=== PATIENT | female | born 1970 | race Caucasian/White ===

== ENCOUNTER 2016-09-22 16:27 | Observation (INO) | payer OTHER ==
[~2016-09-22] VITALS: Ht 154.9 cm; Wt 92.7 kg
[2016-09-22] MEDS ORDERED: LABETALOL HCL 100 MG/20 ML VIAL IV STA ×3 (16:53→21:13)
--- NOTE | 2016-09-22 17:15 | REP ---
Clinical: Headache. Comparison: None. Findings: The ventricles, sulci, and cisterns are normal in position and appearance. Quesada-white differentiation is maintained. No acute intracranial hemorrhage, mass/mass effect, pathology or trauma/injury. No evidence for acute infarction. No extra-axial fluid collection. Calvarium is intact. Paranasal sinuses and mastoid air cells are clear. Impression: Normal noncontrast head CT. No evidence for acute intracranial pathology or trauma/injury. Signed by Phil Crowe MD 09/22/2016 05:07 P
[2016-09-22 17:46] LABS: BASO # 0.1 K/mm3 (0.0-0.2); BASO % 0.8 % (0.0-1.0); EOS # 0.2 K/mm3 (0.0-0.50); EOS % 1.4 % (0.0-3.0); LARGE UNSTAINED CELL # 0.1 K/mm3 (0.0-0.4); LARGE UNSTAINED CELL % 0.9 % (0.0-4.0); LYMPH # 3.4 K/mm3 (1.5-4.5); LYMPH % 28.4 % (24.0-44.0); MEAN CORPUSCULAR HEMOGLOBIN 32.9 pg (27.0-33.0); MEAN CORPUSCULAR VOLUME 94.2 fl (80.0-96.0); MONO # 0.6 K/mm3 (0.0-0.8); MONO % 4.9 % (0.0-5.0); NEUTROPHILS # 7.4 K/mm3 (1.8-7.7); NEUTROPHILS % 63.6 % (36.0-66.0); PLATELET COUNT, AUTOMATED 290 k/mm3 (150-450); WHITE BLOOD COUNT 11.7 K/mm3 (4.0-10.0)
--- NOTE | 2016-09-22 17:58 | REP ---
Clinical: Hypertension . Comparison: 07/14/2014 . Technique: PA and lateral. Findings: The mediastinum and cardiac silhouette are normal. The lung jane are clear and without acute consolidation, effusion, or pneumothorax. The skeletal structures are intact and stable scoliosis is again noted. Impression: 1. No acute cardiopulmonary process. Signed by Phil Crowe MD 09/22/2016 05:49 P
[2016-09-22] MEDS ORDERED: ACETAMINOPHEN TAB 650MG DOSE (2X325MG) PO ONE (18:00)
[2016-09-22 18:17] LABS: ANION GAP 8 MEQ/L (8-16); BLOOD UREA NITROGEN 10 MG/DL (7-18); CALCIUM LEVEL 9.1 MG/DL (8.5-10.1); CARBON DIOXIDE LEVEL 28 MEQ/L (21-32); CHLORIDE LEVEL 104 MEQ/L (98-107); CREATININE FOR GFR 0.56 MG/DL (0.55-1.02); GLOMERULAR FILTRATION RATE > 60.0 (>58); GLUCOSE, FASTING 112 MG/DL (70-105); POTASSIUM SERUM 3.8 MEQ/L (3.5-5.1); SODIUM LEVEL 140 MEQ/L (136-145)
[2016-09-22] MEDS ORDERED: hydrALAZINE INJ 20 MG/ML VIAL IV ONE (19:30)
[2016-09-22] MEDS ORDERED: FUROSEMIDE 40 MG/4 ML VIAL (J1940) IV ONE (19:30)
[2016-09-22] MEDS ORDERED: cloNIDine 0.1 MG TAB PO ONE (19:30)
[2016-09-22] MEDS ORDERED: NAPR500T2 PO (19:33)
[2016-09-22] MEDS ORDERED: GLUCAGON FOR INJ 1 MG VIAL (J1610) SC PRN (20:00)
[2016-09-22] MEDS ORDERED: DEXTROSE 50% 50 ML SYRINGE IV PRN (20:00)
[2016-09-22] MEDS ORDERED: GLUCOSE 4 GM CHEW TABLET PO PRN (20:00)
[2016-09-22] MEDS ORDERED: LABETALOL 100 MG TAB PO SCH (21:00)
[2016-09-22] MEDS ORDERED: NICOTINE POLACRILEX 2 MG GUM PO PRN (21:15)
--- NOTE | 2016-09-22 21:41 | ECGEPIP ---
Stationary ECG Study [facility] - ED Test Date: 2016-09-22 Pat Name: SNEHAL TORRES Department: Room: - Gender: F Hand Clerical Verifier: cris : 1970 Requested By: WILL Mcintyre Order Number: [id number] Reading MD: David Morris Measurements Intervals [place] Rate: 105 P: 49 PA: 164 QRS: 41 QRSD: 90 T: 39 QT: 345 QTc: 456 Interpretive Statements SINUS TACHYCARDIA Electronically Signed On 09-22-2016 21:41:34 EDT by aDvid Morris
--- NOTE | 2016-09-22 22:03 | HPE ---
DATE OF ADMISSION: 09/22/2016 PRIMARY CARE PROVIDER: Jesse Anaya MD INPATIENT HOSPITALIST ATTENDING: All Sosa MD CHIEF COMPLAINT: High blood pressure. HISTORY OF PRESENT ILLNESS: This is a 45-year-old female with history of hypertension, diabetes; has been trying to lose weight and be off medications presents to the emergency room after being found on routine annual examination with [facility] service to have a blood pressure of 220/120. The patient had felt very stressed for the past week, jittery with headache, very anxious. Denied any chest pain, pressure or tightness, lightheadedness, changes in vision, changes in gait. She was previously treated with metoprolol 25 to 50 mg three to four years ago and has been off medication since. Her blood pressure normalized. She was diagnosed with diabetes with A1c of 6.5, but currently trying diet and exercise and weight loss. The patient was sent to the emergency room due to hypertensive urgency. The patient had a similar episode about three months ago when she felt like she was going to pass out and fall while she was at work. At that time her blood pressure was also running quite high in the 180s to 190s. With relaxation and sitting down, the patient's blood pressure decreased to the 140s without intervention and without seeking medical attention. The patient keeps doing no added salt diet, exercises daily and has been trying to lose weight. She denies any history of palpitations or lightheadedness in the past. Does not use any recreational drugs. Hospitalist service was called for admission for hypertensive urgency. PAST MEDICAL HISTORY: Hypertension. Off medications for the past four years. Type 2 diabetes. A1c 6.08 May 2016. Currently attempting diet control. PAST SURGICAL HISTORY: L5-S1 laminectomy and discectomy 2007. SOCIAL HISTORY: The patient is a [employer] RN. Smokes a half a pack of cigarettes a day since age of 15. Still actively smoking. Social alcohol use. FAMILY HISTORY: Mother alive age 70, type 2 diabetes, chronic kidney disease, hypertension, coronary artery disease (CAD) and hypercholesterolemia. Father with lung cancer. HOME MEDICATIONS: None. ALLERGIES: No known drug allergies. EKG: Sinus rhythm. Ventricular rate of 105. No acute ST-T wave changes. CT of the head was negative. Chest x-ray. No apparent distress. No acute cardiopulmonary findings. LABORATORY DATA: White count 11, hemoglobin 16, hematocrit 47, platelet count 290. Sodium 140, potassium 3.8, chloride 104, bicarbonate 28, BUN 10, creatinine 0.7, glucose 112. Calcium 9.1, total CK 65, MB fraction 1, troponin less than 0.02. ASSESSMENT AND PLAN: This is a 45-year-old female with history of hypertension, diabetes, diet controlled, attempting weight loss. Has been off metoprolol for about three to four years. Currently on no medications for diabetes. History of chronic back pain with laminectomy L5 to S1 presents to the emergency room after being found on routine examination at [facility] to have a blood pressure of 220/120. The patient admits to feeling anxious, stressed and jittery. Complains of headache. CURRENT ISSUES: 1. Hypertensive urgency. patient received multiple doses of iv labetalol, iv hydralazine, iv lasix and oral clonidine in the ER with persistent sbp 190. She is admitted to telemetry. Rule out renal artery stenosis due to difficult to control blood pressure. Nothing by mouth (npo) after midnight. continue on labetalol and chlorthalidone 2. Diabetes. Check A1c level. The patient is current diet controlled. During nothing by mouth (npo) status, hypoglycemic protocol and sliding scale every 6 hourly. May resume no added salt consistent carbohydrate diet after renal ultrasound with Doppler. 3. Active smoking. Tobacco cessation counseling. Nicotine gum as needed. 4. Deep venous thrombosis (DVT) prophylaxis with Lovenox. The patient will be assigned to Dr. All Sosa 7:00 a.m. 09/23/2016. [place]
[2016-09-22 22:56] VITALS: BP 122/61
[2016-09-22] MEDS ORDERED: SLF 3 ML SYR IV PRN (23:15)
[2016-09-23] MEDS ORDERED: cloNIDine 0.2 MG TAB PO SCH
[2016-09-23] MEDS ORDERED: hydrALAZINE INJ 20 MG/ML VIAL IV SCH
[2016-09-23] MEDS: HumaLOG INSULIN (NovoLOG) PER UNIT SC SCH ×3 (00:21→11:52)
[2016-09-23 00:23] VITALS: BP 102/61
[2016-09-23 01:43] LABS: METHADONE URINE NEGATIVE (NEGATIVE)
[2016-09-23] MEDS ORDERED: ACETAMINOPHEN TAB 650MG DOSE (2X325MG) PO PRN (02:45)
[2016-09-23 04:58] VITALS: BP 96/54
[2016-09-23 05:38] LABS: BASO # 0.1 K/mm3 (0.0-0.2); EOS # 0.2 K/mm3 (0.0-0.50); LARGE UNSTAINED CELL # 0.1 K/mm3 (0.0-0.4); LARGE UNSTAINED CELL % 1.3 % (0.0-4.0); LYMPH # 4.5 K/mm3 (1.5-4.5); LYMPH % 41.3 % (24.0-44.0); MEAN CORPUSCULAR HEMOGLOBIN 33.3 pg (27.0-33.0); MEAN CORPUSCULAR HGB CONC 34.7 g/dl (32.0-36.5); MEAN CORPUSCULAR VOLUME 95.9 fl (80.0-96.0); MONO # 0.7 K/mm3 (0.0-0.8); MONO % 6.2 % (0.0-5.0); NEUTROPHILS # 5.1 K/mm3 (1.8-7.7); NEUTROPHILS % 48.2 % (36.0-66.0); PLATELET COUNT, AUTOMATED 298 k/mm3 (150-450); RED CELL DISTRIBUTION WIDTH 13.1 % (11.5-14.5); WHITE BLOOD COUNT 10.5 K/mm3 (4.0-10.0)
[2016-09-23 06:00] LABS: ANION GAP 8 MEQ/L (8-16); BLOOD UREA NITROGEN 17 MG/DL (7-18); CARBON DIOXIDE LEVEL 29 MEQ/L (21-32); CHLORIDE LEVEL 106 MEQ/L (98-107); CHOLESTEROL LEVEL 219 MG/DL (<200); CREATININE FOR GFR 0.73 MG/DL (0.55-1.02); GLOMERULAR FILTRATION RATE > 60.0 (>58); GLUCOSE, FASTING 131 MG/DL (70-105); POTASSIUM SERUM 3.6 MEQ/L (3.5-5.1); SODIUM LEVEL 143 MEQ/L (136-145); TRIGLYCERIDES LEVEL 341 MG/DL (<150)
[2016-09-23] MEDS ORDERED: SLF 3 ML SYR IV SCH (06:00)
[2016-09-23 08:00] VITALS: BP 115/59
[2016-09-23 09:00] VITALS: BP 115/59
[2016-09-23] MEDS: LABETALOL 100 MG TAB PO SCH ×2 (09:00→09:11)
[2016-09-23] MEDS ORDERED: CHLORTHALIDONE 25 MG TAB PO SCH (09:00)
--- NOTE | 2016-09-23 09:40 | REP ---
URINARY TRACT SONOGRAPHY WITH RENAL ARTERY DOPPLER FLOW ASSESSMENT: HISTORY: Rule out renal artery stenosis. Hypertension. Hypertensive urgency. MORPHOLOGIC FINDINGS: Scanning at the level of the urinary bladder shows smooth bladder obregon, incomplete bladder filling and no extravesical lesion. Renal cortical echogenicity pattern is normal and renal contours are smooth on both sides. The right kidney measures 13.3 x 7.3 x 4.0 cm. Left renal dimensions are 11.2 x 5.9 x 6.2 cm. Incidental note is made of some evidence of fatty infiltration of the liver. There is no evidence of hydronephrosis, mass, cyst or calculus. RENAL ARTERY DOPPLER FLOW ASSESSMENT: Peak systolic flow velocity in the abdominal aorta at the level of the main renal arteries is normal at 109.4 cm/s. Peak systolic flow velocity measured in the left main renal artery is 90 8.8 cm/s and that in the right main renal artery is measured at 140.2 cm/s. These values are normal. Renal to aortic flow velocity ratios are therefore normal at 1.3 on the right and 0.9 on the left. Resistive indices and acceleration times are measured in the intralobar arteries of the upper, mid and lower pole of each kidney and these values are normal bilaterally. IMPRESSION: No direct or indirect evidence of renal artery stenosis. No morphologic abnormality. Signed by Vincent Angulo MD 09/23/2016 05:07 P
[2016-09-23] MEDS ORDERED: NORV5TAB PO (09:50)
--- NOTE | 2016-09-23 11:23 | DS.PDOC ---
Discharge Summary General Date of Admission September 22, 2016 at 19:22 Date of Discharge 09/23/16 Primary Care Physician: GEOVANI KWON M.D. Discharge Summary PROCEDURES PERFORMED DURING STAY: None. ADMITTING DIAGNOSES: 1. . Hypertensive urgency DISCHARGE DIAGNOSES: 1. . Hypertensive urgency. COMPLICATIONS/CHIEF COMPLAINT: Hypertensive Urgency. HISTORY OF PRESENT ILLNESS: . 45-year-old female with past medical history of diabetes and hypertension was currently not on any medication as she had been practicing lifestyle and dietary modifications in an effort to control the aforementioned comorbid is presents to the ER after she was noted to have a significantly elevated blood pressure of 220/120 during an [facility] service annual examination. The patient states that she has been under a lot of stress recently due to personal issues at home. She reports that sometimes the stressful situations cause her to feel anxious and unwell. Otherwise, the patient states that her blood pressure usually runs in the 130s to 140s systolic as she frequently checks at home. The patient denied any complaints of fevers, chills, chest pain, palpitations, shortness with, abdominal pain, or any nausea/vomiting/diarrhea. In the ER, the patient was given multiple hypotensive agents but her blood pressure remained persistently elevated. The hospitalist service was called for admission and further evaluation and management of the patient's hypertension. During hospitalization, a CT scan of the head was noted to be negative. Renal ultrasound was ordered to rule out renal artery stenosis, and this revealed no acute findings. This morning the patient's blood pressure was actually on the lower side with a systolic in the 90s. The patient states that her blood pressure is usually normal and was only elevated due to the aforementioned personal issues. I've discussed frequent blood pressure checks over the next few days at home for the patient. In addition, I have prescribed the patient Norvasc to be taken if her blood pressure becomes elevated at home. The patient has verbalized understanding of this and states that she will follow up with her primary care physician within one week. I've also advised the patient to return to the ER if her blood pressure is to become uncontrolled again. DISCHARGE MEDICATIONS: Please see below. ALLERGIES: Please see below. PHYSICAL EXAMINATION ON DISCHARGE: VITAL SIGNS: Please see below. GENERAL: Awake, alert, oriented 5, in no acute distress HEENT: Normocephalic, atraumatic NECK: No JVD CARDIOVASCULAR EXAMINATION: Regular rate, regular rhythm RESPIRATORY EXAMINATION: Clear to auscultation bilaterally ABDOMINAL EXAMINATION: Soft, nontender, nondistended EXTREMITIES: No erythema, or tenderness LABORATORY DATA: Please see below. IMAGING: URINARY TRACT SONOGRAPHY WITH RENAL ARTERY DOPPLER FLOW ASSESSMENT: HISTORY: Rule out renal artery stenosis. Hypertension. Hypertensive urgency. MORPHOLOGIC FINDINGS: Scanning at the level of the urinary bladder shows smooth bladder obregon, incomplete bladder filling and no extravesical lesion. Renal cortical echogenicity pattern is normal and renal contours are smooth on both sides. The right kidney measures 13.3 x 7.3 x 4.0 cm. Left renal dimensions are 11.2 x 5.9 x 6.2 cm. Incidental note is made of some evidence of fatty infiltration of the liver. There is no evidence of hydronephrosis, mass, cyst or calculus. RENAL ARTERY DOPPLER FLOW ASSESSMENT: Peak systolic flow velocity in the abdominal aorta at the level of the main renal arteries is normal at 109.4 cm/s. Peak systolic flow velocity measured in the left main renal artery is 90 8.8 cm/ s and that in the right main renal artery is measured at 140.2 cm/s. These values are normal. Renal to aortic flow velocity ratios are therefore normal at 1.3 on the right and 0.9 on the left. Resistive indices and acceleration times are measured in the intralobar arteries of the upper, mid and lower pole of each kidney and these values are normal bilaterally. IMPRESSION: No direct or indirect evidence of renal artery stenosis. No morphologic abnormality. PROGNOSIS: Medically stable ACTIVITY: As tolerated. DIET: . 2 g low sodium diet DISCHARGE PLAN: DISPOSITION: . Home DISCHARGE INSTRUCTIONS: 1. . Follow-up with primary care physician within one week ITEMS TO FOLLOWUP ON ON OUTPATIENT: 1. Return to ER if symptoms return or worsen. DISCHARGE CONDITION: Stable. TIME SPENT ON DISCHARGE: Greater than 30 minutes. Vital Signs/I&Os Vital Signs Date Time Temp Pulse Resp B/P (MAP) Pulse Ox O2 Delivery O2 Flow Rate FiO2 09/23/16 09:00 75 115/59 09/23/16 08:00 97.0 18 96 Room Air I&O- Last 24 Hours up to 6 AM 09/23/16 06:00 Intake Total 50 ml Output Total 400 ml Balance -350 ml Laboratory Data Labs 24H Laboratory Tests 2 09/22/16 17:36: White Blood Count 11.7H, Red Blood Count 5.06, Hemoglobin 16.7H, Hematocrit 47.6H, Mean Corpuscular Volume 94.2, Mean Corpuscular Hemoglobin 32.9, Mean Corpuscular Hemoglobin Concent 35.0, Red Cell Distribution Width 13.0, Platelet Count 290, Neutrophils (%) (Auto) 63.6, Lymphocytes (%) (Auto) 28.4, Monocytes ( %) (Auto) 4.9, Eosinophils (%) (Auto) 1.4, Basophils (%) (Auto) 0.8, Neutrophils # (Auto) 7.4, Lymphocytes # (Auto) 3.4, Monocytes # (Auto) 0.6, Eosinophils # (Auto) 0.2, Basophils # (Auto) 0.1, Large Unclassified Cells % 0.9 , Large Unclassified Cells # 0.1, Anion Gap 8, Glomerular Filtration Rate > 60.0 , Blood Urea Nitrogen 10, Creatinine 0.56, Sodium Level 140, Potassium Level 3.8 , Chloride Level 104, Carbon Dioxide Level 28, Calcium Level 9.1, Total Creatine Kinase 65, Creatine Kinase MB 1.0, Creatine Kinase MB Relative Index 1.53, Troponin I < 0.02 09/22/16 23:48: Total Creatine Kinase 55, Creatine Kinase MB 1.0, Creatine Kinase MB Relative Index 1.81, Troponin I < 0.02 09/23/16 00:40: Urine Creatinine 25.2, Urine Microalbumin < 5.0, Urine Microalbumin/Creatinine Ratio 19.8, Urine Amphetamines Screen NEGATIVE, Urine Benzodiazepines Screen NEGATIVE, Urine Opiates Screen NEGATIVE, Urine Methadone Screen NEGATIVE, Urine Barbiturates Screen NEGATIVE, Urine Phencyclidine Screen NEGATIVE, Urine Cocaine Metabolite Screen NEGATIVE, Urine Cannabinoids Screen NEGATIVE 09/23/16 05:06: White Blood Count 10.5H, Red Blood Count 4.66, Hemoglobin 15.5, Hematocrit 44.7 , Mean Corpuscular Volume 95.9, Mean Corpuscular Hemoglobin 33.3H, Mean Corpuscular Hemoglobin Concent 34.7, Red Cell Distribution Width 13.1, Platelet Count 298, Neutrophils (%) (Auto) 48.2, Lymphocytes (%) (Auto) 41.3, Monocytes ( %) (Auto) 6.2H, Eosinophils (%) (Auto) 2.0, Basophils (%) (Auto) 1.0, Neutrophils # (Auto) 5.1, Lymphocytes # (Auto) 4.5, Monocytes # (Auto) 0.7, Eosinophils # (Auto) 0.2, Basophils # (Auto) 0.1, Large Unclassified Cells % 1.3 , Large Unclassified Cells # 0.1, Anion Gap 8, Glomerular Filtration Rate > 60.0 , Calcium Level 9.0, Total Creatine Kinase 49, Creatine Kinase MB 1.0, Creatine Kinase MB Relative Index 2.04, Troponin I < 0.02, Estimated Mean Plasma Glucose 123H, Hemoglobin A1c 5.9, Magnesium Level 2.0, Triglycerides Level 341H, LDL Cholesterol 114.8H, Total Cholesterol 219H, Non-HDL Cholesterol (LDL + VLDL) 183 , Total HDL Cholesterol 36L, Cholesterol/HDL Ratio 6.083H, Thyroid Stimulating Hormone (TSH) 7.510H CBC/BMP Laboratory Tests 09/22/16 17:36 Red Blood Count 5.06, Mean Corpuscular Volume 94.2, Mean Corpuscular Hemoglobin 32.9, Mean Corpuscular Hemoglobin Concent 35.0, Red Cell Distribution Width 13.0 , Neutrophils (%) (Auto) 63.6, Lymphocytes (%) (Auto) 28.4, Monocytes (%) (Auto ) 4.9, Eosinophils (%) (Auto) 1.4, Basophils (%) (Auto) 0.8, Neutrophils # (Auto ) 7.4, Lymphocytes # (Auto) 3.4, Monocytes # (Auto) 0.6, Eosinophils # (Auto) 0.2, Basophils # (Auto) 0.1, Calcium Level 9.1, Total Creatine Kinase 65 09/23/16 05:06 Red Blood Count 4.66, Mean Corpuscular Volume 95.9, Mean Corpuscular Hemoglobin 33.3 H, Mean Corpuscular Hemoglobin Concent 34.7, Red Cell Distribution Width 13.1, Neutrophils (%) (Auto) 48.2, Lymphocytes (%) (Auto) 41.3, Monocytes (%) ( Auto) 6.2 H, Eosinophils (%) (Auto) 2.0, Basophils (%) (Auto) 1.0, Neutrophils # (Auto) 5.1, Lymphocytes # (Auto) 4.5, Monocytes # (Auto) 0.7, Eosinophils # ( Auto) 0.2, Basophils # (Auto) 0.1 Discharge Medications Scheduled Amlodipine Besylate (Norvasc) 5 Mg Tab, 5 MG PO DAILY Naproxen (Naproxen) 500 Mg Tab, 500 MG PO QHS, (Reported) Allergies Coded Allergies: Methocarbamol (Unverified Allergy, Intermediate, SCRATCHY THROAT/TINGLING TONGUE, 09/22/16) GAMAL CORTEZ MD September 23, 2016 11:23
== END 2016-09-23 12:54 | disposition home or self-care (01) ==
LOC: M ED 17:40 → M ED INP 19:22 → M PCU 22:49
PROVIDERS: ADMIT General Practice; ATTEND Hospitalist
DX: I16.0 Hypertensive urgency (principal); E11.9 Type 2 diabetes mellitus without complications; I10 Essential (primary) hypertension; F17.210 Nicotine dependence, cigarettes, uncomplicated
CPT/HCPCS: 36415; 70450; 71020; 76775; 80048; 80061; 80306; 82043; 82550; 82553; 83036; 83735; 84443; 85025; 93005; 93041; 93975; 94760; 96374; 96375; 96376; 99285; J1940

== ENCOUNTER 2017-04-14 13:56 | Emergency (ER) | payer OTHER ==
[~2017-04-14] VITALS: Ht 154.9 cm; Wt 90.9 kg
[~2017-04-14 13:56] MED LIST: NAPR500T3 PO; NORV5TAB PO
[2017-04-14] MEDS ORDERED: AMLO10TA2 PO (14:22)
[2017-04-14] MEDS ORDERED: METO1TAB7 PO (14:23)
[2017-04-14] MEDS ORDERED: LEVO50TA5 PO (14:24)
[2017-04-14] MEDS ORDERED: LISI-538 PO (14:26)
[2017-04-14] MEDS ORDERED: LISI10TA4 PO (14:26)
[2017-04-14] MEDS ORDERED: ASPIRIN 81 MG CHEW TABLET PO ONE (14:45)
[2017-04-14] MEDS ORDERED: NITROGLYCERIN 2% OINT 1 GM *U/D* PKT TOP ONE (14:45)
[2017-04-14 14:56] LABS: BASO # 0.1 10^3/uL (0.0-0.2); BASO % 1.1 % (0.0-1.0); EOS # 0.1 10^3/uL (0.0-0.50); EOS % 1.1 % (0.0-3.0); IMMATURE GRANULOCYTE % 0.4 % (0-0); LYMPH # 3.4 10^3/uL (1.5-4.5); LYMPH % 35.9 % (24.0-44.0); MEAN CORPUSCULAR HEMOGLOBIN 32.4 pg (27.0-33.0); MEAN CORPUSCULAR HGB CONC 34.6 g/dl (32.0-36.5); MEAN CORPUSCULAR VOLUME 93.6 fl (80.0-96.0); MONO # 0.6 10^3/uL (0.0-0.8); MONO % 6.3 % (0.0-5.0); NEUTROPHILS # 5.3 10^3/uL (1.8-7.7); NEUTROPHILS % 55.2 % (36.0-66.0); RED CELL DISTRIBUTION WIDTH 12.7 % (11.5-14.5); WHITE BLOOD COUNT 9.6 10^3/uL (4.0-10.0)
[2017-04-14 15:00] LABS: CONTROL LINE HCG INT CTR LINE PRESENT
[2017-04-14 15:08] LABS: ALBUMIN 4.3 GM/DL (3.2-5.2); ALBUMIN/GLOBULIN RATIO 0.91 (1.00-1.93); ALKALINE PHOSPHATASE 137 U/L (45-117); ALT/SGPT 28 U/L (12-78); ANION GAP 8 MEQ/L (8-16); AST/SGOT 17 U/L (7-37); BILIRUBIN,DIRECT < 0.1 MG/DL (0.0-0.2); BILIRUBIN,TOTAL 0.3 MG/DL (0.2-1.0); BLOOD UREA NITROGEN 10 MG/DL (7-18); CALCIUM LEVEL 9.9 MG/DL (8.5-10.1); CARBON DIOXIDE LEVEL 27 MEQ/L (21-32); CHLORIDE LEVEL 105 MEQ/L (98-107); FREE T4 1.13 NG/DL (0.76-1.46); GLOMERULAR FILTRATION RATE > 60.0 (>58); GLUCOSE, FASTING 120 MG/DL (70-105); SODIUM LEVEL 140 MEQ/L (136-145)
[2017-04-14 15:09] LABS: INR 0.85
[2017-04-14 15:12] LABS: PLATELET COUNT, AUTOMATED 328 10^3/uL (150-450); PLT CLUMPS? POS FLAG; POS COUNT POS FLAG
--- NOTE | 2017-04-14 15:37 | REP ---
Portable chest, three of 09:00 p.m., single AP view, patient sitting: Comparison is 09/22/2016. Lung jane are clear. Cardiac size normal. The parris and mediastinum unremarkable. There is thoracic scoliosis convex right, unchanged. Impression: Essentially negative portable chest. No interval change. Signed by Onesimo Garcia MD 04/14/2017 03:28 P
[2017-04-14 16:45] VITALS: BP 124/71
[2017-04-14] MEDS ORDERED: METOPROLOL TART 25 MG TABLET PO ONE (16:45)
[2017-04-14] MEDS ORDERED: METO50TA7 PO (20:47)
[2017-04-14 21:12] VITALS: BP 115/72
--- NOTE | 2017-04-14 21:26 | ECGEPIP ---
Stationary ECG Study [facility] - ED Test Date: 2017-04-14 Pat Name: SNEHAL TORRES Department: Room: - Gender: F [employer] Internship: DEBI : 1970 Requested By: LATASHA Pena Order Number: [id number] Reading MD: Sameera Prather Measurements Intervals [place] Rate: 105 P: 42 MD: 166 QRS: 30 QRSD: 83 T: 37 QT: 340 QTc: 449 Interpretive Statements SINUS TACHYCARDIA ABNORMAL RHYTHM ECG NSTTW ABNORMALITY SIMILAR 09/22/16 Electronically Signed On 04-14-2017 21:26:18 EST by Sameera Prather
== END 2017-04-14 21:13 | disposition home or self-care (01) ==
LOC: M ED 13:56 → EDBD 13:56 → M ED 21:13
DX: I10 Essential (primary) hypertension (principal); R00.0 Tachycardia, unspecified; R94.31 Abnormal electrocardiogram [ECG] [EKG]; E11.9 Type 2 diabetes mellitus without complications; F17.200 Nicotine dependence, unspecified, uncomplicated; Z79.899 Other long term (current) drug therapy; Z88.8 Allergy status to other drugs, medicaments and biological substances

== ENCOUNTER 2017-05-14 07:18 | Emergency (ER) | payer OTHER ==
[2017-05-14] MEDS: LORazepam 2 MG/ML VIAL (J2060) IV (08:22)
[2017-05-14 08:33] LABS: BASO # 0.1 10^3/uL (0.0-0.2); BASO % 0.9 % (0.0-1.0); EOS # 0.1 10^3/uL (0.0-0.50); EOS % 1.1 % (0.0-3.0); HEMATOCRIT 48.9 % (36.0-47.0); IMMATURE GRANULOCYTE % 0.4 % (0-0); LYMPH # 2.7 10^3/uL (1.5-4.5); LYMPH % 23.4 % (24.0-44.0); MEAN CORPUSCULAR HEMOGLOBIN 32.6 pg (27.0-33.0); MEAN CORPUSCULAR HGB CONC 34.8 g/dl (32.0-36.5); MEAN CORPUSCULAR VOLUME 93.7 fl (80.0-96.0); MONO % 8.6 % (0.0-5.0); NEUTROPHILS # 7.5 10^3/uL (1.8-7.7); NEUTROPHILS % 65.6 % (36.0-66.0); PLATELET COUNT, AUTOMATED 383 10^3/uL (150-450); RED BLOOD COUNT 5.22 10^6/uL (4.00-5.40); RED CELL DISTRIBUTION WIDTH 12.7 % (11.5-14.5); WHITE BLOOD COUNT 11.4 10^3/uL (4.0-10.0)
[2017-05-14 08:43] LABS: D-DIMER QUANT 541.4 ng/ml (<500)
[2017-05-14 08:47] LABS: ALBUMIN/GLOBULIN RATIO 0.91 (1.00-1.93); ALKALINE PHOSPHATASE 141 U/L (45-117); ALT/SGPT 37 U/L (12-78); ANION GAP 9 MEQ/L (8-16); AST/SGOT 19 U/L (7-37); BILIRUBIN,DIRECT < 0.1 MG/DL (0.0-0.2); BILIRUBIN,TOTAL 0.3 MG/DL (0.2-1.0); BLOOD UREA NITROGEN 14 MG/DL (7-18); CALCIUM LEVEL 9.6 MG/DL (8.5-10.1); CARBON DIOXIDE LEVEL 27 MEQ/L (21-32); CHLORIDE LEVEL 103 MEQ/L (98-107); CPK CREATINE PHOSPHOKINASE 51 U/L (26-192); CREATININE FOR GFR 0.68 MG/DL (0.55-1.02); GLOMERULAR FILTRATION RATE > 60.0 (>58); GLUCOSE, FASTING 163 MG/DL (70-105); POTASSIUM SERUM 4.3 MEQ/L (3.5-5.1); SODIUM LEVEL 139 MEQ/L (136-145); TOTAL PROTEIN 8.4 GM/DL (6.4-8.2); TROPONIN I < 0.02 NG/ML (< 0.10)
[2017-05-14 08:52] LABS: FREE T4 1.14 NG/DL (0.76-1.46); MB/CK RELATIVE INDEX 1.96 (< OR =4)
[2017-05-14] MEDS ORDERED: ISOVUE-370 76% 100ML VIAL (Q9967) As Ordered (09:28)
[2017-05-14] MEDS: NS 500 ML IV (12:00)
[2017-05-14 14:45] LABS: CPK CREATINE PHOSPHOKINASE 37 U/L (26-192); TROPONIN I < 0.02 NG/ML (< 0.10)
== END 2017-05-14 15:58 | disposition home or self-care (01) ==
LOC: M ED 07:18
DX: R07.89 Other chest pain (principal); I10 Essential (primary) hypertension; F41.9 Anxiety disorder, unspecified; R00.0 Tachycardia, unspecified; R94.31 Abnormal electrocardiogram [ECG] [EKG]; M41.24 Other idiopathic scoliosis, thoracic region; K76.0 Fatty (change of) liver, not elsewhere classified; E03.9 Hypothyroidism, unspecified; F17.200 Nicotine dependence, unspecified, uncomplicated; Z82.49 Family history of ischemic heart disease and other diseases of the circulatory system; Z83.49 Family history of other endocrine, nutritional and metabolic diseases; Z80.1 Family history of malignant neoplasm of trachea, bronchus and lung; Z79.899 Other long term (current) drug therapy; Z88.8 Allergy status to other drugs, medicaments and biological substances
CPT/HCPCS: Q9967

== ENCOUNTER → 2018-11-12 | Outpatient (REF) | payer OTHER ==
[~2018-11-12] MED LIST changes: +AMLO10TA5 PO; +LEVO50TA5 PO; +LISI-538 PO; +LISI10TA4 PO; +METO1TAB7 PO; +METO50TA7 PO; +NAPR-885 PO; -NAPR500T3 PO
[2018-11-12 12:11] LABS: BLOOD UREA NITROGEN 15 MG/DL (7-18); CREATININE FOR GFR 0.71 MG/DL (0.55-1.30); GLOMERULAR FILTRATION RATE > 60.0 (>58)
== END ==
LOC: M LABDRAW1 09:35
PROVIDERS: ATTEND Orthopaedic Surgery
DX: M79.672 Pain in left foot (principal)

== ENCOUNTER → 2019-02-18 | Outpatient (CLI) | payer OTHER ==
--- NOTE | 2019-02-18 15:12 | REP ---
REASON FOR EXAM: Left foot bone lesion. A triple phase bone scan of the feet obtained 10/30/2014, was reviewed. Prior MRI examinations of 10/28/2018 and 11/18/2018 showed signal changes and enhancement involving the 4th metatarsal. After the intravenous administration of 22.0 mCi of technetium 99m MDP, a total body bone scan was obtained. There is a degenerative-type uptake pattern seen in the shoulders, hips, knees, spine, and feet. The uptake seen in the feet, best imaged on the small field of view magnified scintiscans but only in the lateral projections, is similar to the uptake pattern seen on the prior triple-phase bone scan. The uptake pattern is rather symmetric in appearance bilaterally. I cannot confirm that any of the uptake pattern is consistent with the MRI finding involving the 4th metatarsal. IMPRESSION: Chronic degenerative-type uptake pattern which is mild and seen bilaterally, as described above. Electronically Signed by Graham Cabrera DO 02/18/2019 04:20 P
== END ==
LOC: M RAD 09:48
PROVIDERS: ATTEND Orthopaedic Surgery
DX: M89.9 Disorder of bone, unspecified (principal)

== ENCOUNTER 2019-12-22 23:30 | Emergency (ER) | payer OTHER ==
[~2019-12-22] VITALS: Ht 154.9 cm; Wt 93.5 kg
[~2019-12-22 23:30] MED LIST changes: -AMLO10TA5 PO; +AMLO1TAB25 PO
[2019-12-22 23:31] VITALS: BP 163/87
[2019-12-22] MEDS ORDERED: ESCI10TA2 (23:48)
[2019-12-22] MEDS ORDERED: ATOR1TAB19 (23:48)
[2019-12-22] MEDS ORDERED: METO1TAB7 PO (23:48)
[2019-12-22] MEDS ORDERED: METF-838 (23:48)
[2019-12-22] MEDS ORDERED: LISI10TA4 (23:48)
[2019-12-23 00:22] LABS: BASO # 0.1 10^3/uL (0.0-0.2); BASO % 0.9 % (0.0-1.0); EOS # 0.2 10^3/uL (0.0-0.5); EOS % 1.6 % (0.0-3.0); HEMATOCRIT 49.1 % (36.0-47.0); HEMOGLOBIN 17.1 g/dl (12.0-15.5); LYMPH % 37.9 % (24.0-44.0); MEAN CORPUSCULAR HEMOGLOBIN 34.1 pg (27.0-33.0); MEAN CORPUSCULAR HGB CONC 34.8 g/dl (32.0-36.5); MONO # 1.2 10^3/uL (0.0-0.8); MONO % 9.3 % (0.0-5.0); NEUTROPHILS # 6.5 10^3/uL (1.5-8.5); PLATELET COUNT, AUTOMATED 299 10^3/uL (150-450); RED BLOOD COUNT 5.01 10^6/uL (4.00-5.40)
[2019-12-23 00:24] LABS: WHITE BLOOD COUNT 13.1 10^3/uL (4.0-10.0)
[2019-12-23 00:38] LABS: ALBUMIN 3.8 GM/DL (3.2-5.2); ALT/SGPT 24 U/L (12-78); BILIRUBIN,DIRECT < 0.1 MG/DL (0.0-0.2); BILIRUBIN,TOTAL 0.3 MG/DL (0.2-1.0); BLOOD UREA NITROGEN 10 MG/DL (7-18); CALCIUM LEVEL 9.5 MG/DL (8.5-10.1); CARBON DIOXIDE LEVEL 31 MEQ/L (21-32); CHLORIDE LEVEL 103 MEQ/L (98-107); CREATININE FOR GFR 0.68 MG/DL (0.55-1.30); GLOMERULAR FILTRATION RATE > 60.0 (>51); GLUCOSE, FASTING 198 MG/DL (70-100); POTASSIUM SERUM 4.2 MEQ/L (3.5-5.1); SODIUM LEVEL 138 MEQ/L (136-145); TOTAL PROTEIN 7.4 GM/DL (6.4-8.2)
--- NOTE | 2019-12-23 00:46 | REPVR ---
PROCEDURE INFORMATION: Exam: US Duplex Left Lower Extremity Veins, Limited Exam date and time: 12/23/2019 12:25 AM Age: 49 years old Clinical indication: Pain; Leg, lower; Left; Additional info: Leg swelling TECHNIQUE: Imaging protocol: Real-time Duplex ultrasound of the Left Lower Extremity with 2-D mehta scale, color Doppler flow and spectral waveform analysis with image documentation. Limited exam focused on the left lower extremity veins. COMPARISON: No relevant prior studies available. FINDINGS: Left deep veins: Unremarkable. The common femoral, femoral, proximal profunda femoral and popliteal veins are patent without thrombus. Normal Doppler waveforms. Normal compressibility and/or augmentation response. Left superficial veins: Unremarkable. Saphenofemoral junction is patent without thrombus. Soft tissues: Unremarkable. IMPRESSION: No evidence of DVT. Electronically signed by: Willie Arevalo On 12/23/2019 00:46:32 AM
[2019-12-23] MEDS ORDERED: ceFAZolin SOD 1 GM in D5W MINI-BAG PLUS 50 ML IV ONE (01:30)
[2019-12-23] MEDS ORDERED: NS 1,000 ML IV ONE (01:30)
--- NOTE | 2019-12-23 02:16 | REPVR ---
PROCEDURE INFORMATION: Exam: XR Left Tibia and Fibula Exam date and time: 12/23/2019 2:05 AM Age: 49 years old Clinical indication: Other: Swelling; Additional info: Swelling/injury TECHNIQUE: Imaging protocol: XR Left tibia and fibula. Views: 2 views. COMPARISON: No relevant prior studies available. FINDINGS: Bones/joints: Normal. Soft tissues: Normal. IMPRESSION: No acute findings. Electronically signed by: Willie Arevalo On 12/23/2019 02:16:27 AM
[2019-12-23] MEDS ORDERED: LEVA750T7 PO (02:31)
[2019-12-23] MEDS ORDERED: CLEO300C2 PO (02:31)
[2019-12-23] MEDS ORDERED: BOOSTRIX/ADACEL VACCINE (DIPHTH/PERTUSS/ACELL/TETANUS) 0.5ML SYR IM ONE (02:45)
== END 2019-12-23 03:00 | disposition home or self-care (01) ==
LOC: M ED 23:30
DX: L03.116 Cellulitis of left lower limb (principal); S89.92XA Unspecified injury of left lower leg, initial encounter; W01.0XXA Fall on same level from slipping, tripping and stumbling without subsequent striking against object, initial encounter; Y92.9 Unspecified place or not applicable; E11.9 Type 2 diabetes mellitus without complications; I10 Essential (primary) hypertension; E03.9 Hypothyroidism, unspecified; Z88.8 Allergy status to other drugs, medicaments and biological substances; Z79.84 Long term (current) use of oral hypoglycemic drugs; Z79.899 Other long term (current) drug therapy
CPT/HCPCS: 73590; 80048; 80076; 85025; 87040; 87070; 87077; 87186; 87205; 90471; 90715; 93971; 96361; 96365; 99283; J0690

== ENCOUNTER → 2020-02-03 | Outpatient (REF) | payer OTHER ==
[~2020-02-03] MED LIST changes: +ATOR1TAB19; +CLEO300C2 PO; +ESCI10TA2; +LEVA750T7 PO; +LISI10TA4; +METF-838
== END ==
LOC: M LAB REF 16:06
PROVIDERS: ATTEND Family Medicine
DX: R19.7 Diarrhea, unspecified (principal)

== ENCOUNTER → 2021-03-13 | Outpatient (CLI) | payer OTHER ==
[~2021-03-13] MED LIST changes: +ESCI10TA16; -ESCI10TA2; -LISI-538 PO; +LISI10TA22; +LISI10TA22 PO; -LISI10TA4; -LISI10TA4 PO; +LISI20TA33 PO
--- NOTE | 2021-03-13 16:21 | REP ---
INDICATION: EARLY LUNG SCREENING H/O SMOKING. COMPARISON: 05/14/2017 TECHNIQUE: Low-dose CT with 3 mm axial images without contrast.. FINDINGS: The area of scarring in the right middle lobe is again seen and unchanged. No pulmonary nodules, acute areas of parenchymal opacification or effusion is currently noted. The heart is normal in size with no evidence of pericardial effusion. IMPRESSION: Stable area of scarring in the right middle lobe. 2. No pulmonary nodules or other masses are identified. <Electronically signed by Paul Harrison > 03/13/21 [id number]
== END ==
LOC: M RAD 15:56
PROVIDERS: ATTEND Family Medicine
DX: F17.210 Nicotine dependence, cigarettes, uncomplicated (principal)

== ENCOUNTER → 2021-05-24 | Outpatient (CLI) | payer OTHER | LOC: M WHC 14:00 | PROVIDERS: ATTEND Family Medicine | DX: Z12.31 Encounter for screening mammogram for malignant neoplasm of breast (principal) ==

== ENCOUNTER → 2022-02-07 | Outpatient (REF) ==
[2022-02-07 14:31] LABS: RSV AMPLIFICATION NEGATIVE (NEGATIVE)
== END ==
LOC: M EMP 12:00
PROVIDERS: ATTEND Family Medicine
DX: Z20.822 Contact with and (suspected) exposure to COVID-19 (principal)

== ENCOUNTER → 2022-06-02 | Outpatient (CLI) | payer OTHER | LOC: M RAD 13:29 | PROVIDERS: ATTEND Family Medicine | DX: Z12.2 Encounter for screening for malignant neoplasm of respiratory organs (principal); F17.210 Nicotine dependence, cigarettes, uncomplicated ==

== ENCOUNTER → 2023-08-07 | Outpatient (CLI) | payer OTHER ==
[~2023-08-07] MED LIST changes: +ATOR1TAB21 PO; +IBUP200C29 PO; +LEXA1TAB PO; -METF-838; +METF-838 PO; +TRUL10IN SC
== END ==
LOC: M RAD 13:09
PROVIDERS: ATTEND Family Medicine
DX: Z12.2 Encounter for screening for malignant neoplasm of respiratory organs (principal); F17.210 Nicotine dependence, cigarettes, uncomplicated

== ENCOUNTER 2024-01-27 08:58 | Day surgery (SDC) | payer OTHER ==
[~2024-01-27] VITALS: Ht 154.9 cm; Wt 77.1 kg
[~2024-01-27 08:58] MED LIST changes: +NS 1,000 ML IV ONE
[2024-01-27 10:23] VITALS: TEMP 98.3
[2024-01-27 10:40] VITALS: BP 123/68; O2SAT 96
[2024-01-27] MEDS ORDERED: LIDOCAINE 2% 100MG/5ML SDV (FOR ANES.) As Ordered ONE (10:50)
[2024-01-27] MEDS ORDERED: propofoL 200 MG/20 ML VIAL As Ordered ONE (10:50)
== END 2024-01-27 10:44 | disposition home or self-care (01) ==
LOC: M OPP 08:58
PROVIDERS: ATTEND Internal Medicine Gastroenterology
DX: Z12.11 Encounter for screening for malignant neoplasm of colon (principal); K64.0 First degree hemorrhoids; D12.6 Benign neoplasm of colon, unspecified; K57.30 Diverticulosis of large intestine without perforation or abscess without bleeding; I10 Essential (primary) hypertension; E78.5 Hyperlipidemia, unspecified; E03.9 Hypothyroidism, unspecified; E11.9 Type 2 diabetes mellitus without complications; F10.10 Alcohol abuse, uncomplicated; F17.220 Nicotine dependence, chewing tobacco, uncomplicated; Z79.84 Long term (current) use of oral hypoglycemic drugs; Z79.899 Other long term (current) drug therapy

== ENCOUNTER → 2024-08-24 | Outpatient (CLI) | payer OTHER ==
[~2024-08-24] MED LIST changes: -NS 1,000 ML IV ONE
== END ==
LOC: M RAD 15:46
PROVIDERS: ATTEND Family Medicine
DX: Z12.2 Encounter for screening for malignant neoplasm of respiratory organs (principal); F17.210 Nicotine dependence, cigarettes, uncomplicated